=== PATIENT | female | born 1960 | race Caucasian/White ===

== ENCOUNTER 2022-03-14 10:48 | Emergency (ER) | payer OTHER ==
[~2022-03-14] VITALS: Ht 172.7 cm; Wt 76.2 kg
[2022-03-14] MEDS ORDERED: FLURBIPROFEN100 MG PO (10:59)
--- NOTE | 2022-03-14 20:14 | EKG ---
[facility] [address] [place], [place] [address] Signed Sinus bradycardia Septal infarct (cited on or before 14-MAR-2022) Abnormal ECG When compared with ECG of 14-MAR-2022 10:48, (Unconfirmed) No significant change was found Confirmed by BETTINA FRIED MD ([id number] on 03/14/2022 8:14:10 PM Electronically Signed By: BETTINA FRIED MD 03/14/222013 PATIENT NAME: RAYMOND MUNOZ Electrocardiogram DATE OF : 58 PHYSICIAN: BETTINA FRIED MD REPORT #: [id number] REPORT IS CONFIDENTIAL AND NOT TO BE RELEASED WITHOUT AUTHORIZATION
--- NOTE | 2022-03-14 20:14 | EKG ---
[facility] [address] [facility] [place], [place] [address] Signed Sinus bradycardia Cannot rule out Anterior infarct , age undetermined Abnormal ECG No previous ECGs available Confirmed by BETTINA FRIED MD ([id number] on 03/14/2022 8:14:02 PM Electronically Signed By: BETTINA FRIED MD 03/14/222013 PATIENT NAME: RAYMOND MUNOZ Electrocardiogram DATE OF : 58 PHYSICIAN: BETTINA FRIED MD REPORT #: [id number] REPORT IS CONFIDENTIAL AND NOT TO BE RELEASED WITHOUT AUTHORIZATION
== END 2022-03-14 13:37 | disposition home or self-care (01) ==
LOC: ED 10:48
DX: R07.89 Other chest pain (principal); Z88.0 Allergy status to penicillin; Z79.899 Other long term (current) drug therapy
CPT/HCPCS: 36415; 71045; 80053; 83735; 84484; 85025; 93005; 93010; 99285-25